=== PATIENT | female | born 1965 | race Caucasian/White ===

== ENCOUNTER 2020-02-19 14:21 | Emergency (ER) | payer MEDICAID ==
[~2020-02-19] VITALS: Ht 167.6 cm; Wt 86.2 kg
[2020-02-19 14:28] VITALS: Ht 167.6 cm; Wt 86.2 kg
[2020-02-19 15:47] VITALS: BP 120/72
== END 2020-02-19 15:47 | disposition home or self-care (01) ==
LOC: ED 14:21
DX: S91.134A Puncture wound without foreign body of right lesser toe(s) without damage to nail, initial encounter (principal); I10 Essential (primary) hypertension; E11.9 Type 2 diabetes mellitus without complications; W22.8XXA Striking against or struck by other objects, initial encounter; Y93.89 Activity, other specified; Y92.89 Other specified places as the place of occurrence of the external cause; Y99.8 Other external cause status
CPT/HCPCS: 82962

== ENCOUNTER 2020-07-17 13:46 | Emergency (ER) | payer MEDICAID ==
[~2020-07-17] VITALS: Ht 162.6 cm; Wt 82.6 kg
[2020-07-17 13:51] VITALS: Ht 162.6 cm; Wt 82.6 kg
[2020-07-17 15:01] LABS: BASOPHIL % 0.6 % (0.2-1.3); PLATELET COUNT 190 x10^3mcL (179-408); RED CELL DISTRIBUTION WIDTH 13.8 % (12.3-17.7)
[2020-07-17 15:32] LABS: CALCIUM 8.4 mg/dL (8.5-10.1); CARBON DIOXIDE 27.5 mmol/L (21-32); CHLORIDE SERUM 103 mmol/L (98-107); CREATININE SERUM 0.8 mg/dL (0.6-1.0); GFR1 > 60 mL/min; GLUCOSE SERUM 202 mg/dL (74-106); POTASSIUM SERUM 3.6 mmol/L (3.5-5.1); SODIUM SERUM 141 mmol/L (136-145)
[2020-07-17 15:37] LABS: FREE T4 0.84 ng/dL (0.76-1.46); FREE THYROXINE INDEX 2.7 ug/dL (1.4-4.5); T4(THYROXINE) 8.3 ug/dL (4.7-13.3)
[2020-07-17 15:38] LABS: ALBUMIN 3.8 g/dL (3.4-5.0); ALKALINE PHOSPHATASE 71 U/L (46-116); BILIRUBIN TOTAL 0.3 mg/dL (0.20-1.00); HDL CHOLESTEROL 48 mg/dL (40-60); LIPASE 197 IU/L (73-393); TOTAL PROTEIN, SERUM 7.9 g/dL (6.4-8.2)
[2020-07-17 15:43] LABS: CHOLESTEROL 301 mg/dL (<200); CHOLESTEROL/HDL RATIO 6.3
[2020-07-17 15:44] LABS: TRIGLYCERIDES 760 mg/dL (<150)
[2020-07-17 15:45] LABS: T3 TOTAL 1.24 ng/mL
[2020-07-17 17:20] VITALS: BP 111/64
[2020-07-17 18:07] LABS: ALT/SGPT 46 U/L (14-59); AST/SGOT 26 U/L (15-37)
== END 2020-07-17 17:20 | disposition home or self-care (01) ==
LOC: ED 13:46
PROVIDERS: Specialist
DX: I10 Essential (primary) hypertension (principal); E11.9 Type 2 diabetes mellitus without complications; R00.2 Palpitations; R51.9 Headache, unspecified; Z90.89 Acquired absence of other organs
CPT/HCPCS: 83880; 84439; J1885; J7030